=== PATIENT | female | born 1965 | race Caucasian/White ===

== ENCOUNTER 2018-04-24 14:23 | Emergency (ER) | payer OTHER ==
[~2018-04-24] VITALS: Ht 154.9 cm; Wt 63.2 kg
[2018-04-24] MEDS ORDERED: TRAZODONE50 MG PO (14:34)
[2018-04-24] MEDS ORDERED: TIZANIDINE HCL2 MG PO (14:34)
[2018-04-24] MEDS ORDERED: LABETALOL200 MG PO (14:35)
[2018-04-24] MEDS ORDERED: VITAMIN B IM (14:37)
[2018-04-24] MEDS ORDERED: LOSARTAN POTASS50 MG PO (14:37)
[2018-04-24] MEDS ORDERED: PEPCID20 MG PO (14:37)
[2018-04-24] MEDS ORDERED: LIPITOR20 MG PO (14:38)
[2018-04-24] MEDS ORDERED: IBUPROFEN600 MG PO (16:03)
[2018-04-24 16:41] VITALS: BP 102/63
== END 2018-04-24 16:41 | disposition home or self-care (01) | DRG 605 ==
LOC: ED 14:23
DX: S70.02XA Contusion of left hip, initial encounter (principal); I69.354 Hemiplegia and hemiparesis following cerebral infarction affecting left non-dominant side; W01.0XXA Fall on same level from slipping, tripping and stumbling without subsequent striking against object, initial encounter; Y92.009 Unspecified place in unspecified non-institutional (private) residence as the place of occurrence of the external cause; I10 Essential (primary) hypertension

== ENCOUNTER 2018-10-25 16:12 | Emergency (ER) | payer OTHER ==
[~2018-10-25] VITALS: Ht 154.9 cm; Wt 70.0 kg
[~2018-10-25 16:12] MED LIST: IBUPROFEN600 MG PO; LABETALOL200 MG PO; LIPITOR20 MG PO; LOSARTAN POTASS50 MG PO; PEPCID20 MG PO; TIZANIDINE HCL2 MG PO; TRAZODONE50 MG PO; VITAMIN B IM
[2018-10-25] MEDS ORDERED: TRAMADOL HCL50 MG PO (16:27)
[2018-10-25 16:31] VITALS: BP 150/101
== END 2018-10-25 16:45 | disposition home or self-care (01) | DRG 563 ==
LOC: ED 16:12
PROC: 2W3DX1Z Immobilization of Left Lower Arm using Splint (ICD-10-PCS; principal; 2018-10-25)
DX: S52.002A Unspecified fracture of upper end of left ulna, initial encounter for closed fracture (principal); I10 Essential (primary) hypertension; I69.954 Hemiplegia and hemiparesis following unspecified cerebrovascular disease affecting left non-dominant side; W19.XXXA Unspecified fall, initial encounter

== ENCOUNTER 2019-01-09 16:44 | Emergency (ER) | payer OTHER ==
[~2019-01-09] VITALS: Ht 154.9 cm; Wt 65.0 kg
[~2019-01-09 16:44] MED LIST changes: +TRAMADOL HCL50 MG PO
== END 2019-01-09 18:20 | disposition home or self-care (01) | DRG 605 ==
LOC: ED 16:44
DX: S60.012A Contusion of left thumb without damage to nail, initial encounter (principal); I69.354 Hemiplegia and hemiparesis following cerebral infarction affecting left non-dominant side; I10 Essential (primary) hypertension; V49.40XA Driver injured in collision with unspecified motor vehicles in traffic accident, initial encounter

== ENCOUNTER 2019-01-24 09:00 | Outpatient (RCR) | payer OTHER | END 2019-01-24 10:00 | disposition home or self-care (01) | DRG 947 | LOC: PT 09:00 | PROVIDERS: ATTEND Internal Medicine | DX: R53.1 Weakness (principal); I61.9 Nontraumatic intracerebral hemorrhage, unspecified; M62.81 Muscle weakness (generalized) ==

== ENCOUNTER → 2019-01-30 | Outpatient (REF) | payer OTHER ==
[~2019-01-30] MED LIST changes: +TRAMADOL HYDROC50 MG PO
== END | disposition home or self-care (01) | DRG 999 ==
LOC: DI 11:36
PROVIDERS: ATTEND Orthopaedic Surgery
DX: M25.552 Pain in left hip (principal); S72.002A Fracture of unspecified part of neck of left femur, initial encounter for closed fracture; S52.025D Nondisplaced fracture of olecranon process without intraarticular extension of left ulna, subsequent encounter for closed fracture with routine healing

== ENCOUNTER 2019-02-23 15:11 | Emergency (ER) | payer OTHER ==
[~2019-02-23] VITALS: Ht 154.9 cm; Wt 70.0 kg
[~2019-02-23 15:11] MED LIST changes: -TRAMADOL HYDROC50 MG PO
[2019-02-23] MEDS ORDERED: TRAMADOL HYDROC50 MG PO (16:41)
[2019-02-23 16:55] VITALS: BP 119/80
== END 2019-02-23 16:55 | disposition home or self-care (01) | DRG 563 ==
LOC: ED 15:11
PROC: 2W39X1Z Immobilization of Left Upper Extremity using Splint (ICD-10-PCS; principal; 2019-02-23)
DX: S42.492A Other displaced fracture of lower end of left humerus, initial encounter for closed fracture (principal); I10 Essential (primary) hypertension; W01.0XXA Fall on same level from slipping, tripping and stumbling without subsequent striking against object, initial encounter; Y92.59 Other trade areas as the place of occurrence of the external cause; S52.022D Displaced fracture of olecranon process without intraarticular extension of left ulna, subsequent encounter for closed fracture with routine healing; X58.XXXD Exposure to other specified factors, subsequent encounter

== ENCOUNTER 2019-04-06 13:18 | Emergency (ER) | payer OTHER ==
[~2019-04-06] VITALS: Ht 154.9 cm; Wt 70.0 kg
[~2019-04-06 13:18] MED LIST changes: +TRAMADOL HYDROC50 MG PO
[2019-04-06] MEDS ORDERED: BUPROPION HCL150 M1 PO (13:57)
[2019-04-06] MEDS ORDERED: GABAPENTIN100 MG PO (13:57)
[2019-04-06 15:15] VITALS: BP 121/79
== END 2019-04-06 15:15 | disposition home or self-care (01) | DRG 563 ==
LOC: ED 13:18
DX: S42.292A Other displaced fracture of upper end of left humerus, initial encounter for closed fracture (principal); I69.998 Other sequelae following unspecified cerebrovascular disease; W01.0XXA Fall on same level from slipping, tripping and stumbling without subsequent striking against object, initial encounter; Y92.009 Unspecified place in unspecified non-institutional (private) residence as the place of occurrence of the external cause

== ENCOUNTER → 2019-07-03 | Day surgery (SDC) | payer OTHER ==
[~2019-07-03] VITALS: Ht 154.9 cm; Wt 66.7 kg
[~2019-07-03] MED LIST changes: +BUPROPION HCL150 M1 PO; +GABAPENTIN100 MG PO
[2019-07-03 10:16] VITALS: BP 148/91
== END | disposition home or self-care (01) | DRG 951 ==
LOC: ENDO 07:16
PROVIDERS: ATTEND Surgery
PROC: 0DBP8ZX Excision of Rectum, Via Natural or Artificial Opening Endoscopic, Diagnostic (ICD-10-PCS; principal; 2019-07-03)
DX: Z12.11 Encounter for screening for malignant neoplasm of colon (principal); D12.8 Benign neoplasm of rectum; K57.30 Diverticulosis of large intestine without perforation or abscess without bleeding; Q43.8 Other specified congenital malformations of intestine; I10 Essential (primary) hypertension; Z80.0 Family history of malignant neoplasm of digestive organs; Z83.71 Family history of colonic polyps
CPT/HCPCS: J0131

== ENCOUNTER 2019-12-17 | Emergency (ER) | payer OTHER ==
[2019-12-17] MEDS ORDERED: AMLODIPINE BESYL5 MG PO (15:21)
[2019-12-17] MEDS ORDERED: LABETALOL HYDR100 MG PO (15:22)
[2019-12-17] MEDS ORDERED: DESYREL50 MG PO (15:22)
== END 2019-12-17 16:00 | disposition home or self-care (01) | DRG 563 ==
DX: S63.501A Unspecified sprain of right wrist, initial encounter (principal); S60.211A Contusion of right wrist, initial encounter; I10 Essential (primary) hypertension; W01.0XXA Fall on same level from slipping, tripping and stumbling without subsequent striking against object, initial encounter; Y92.22 Religious institution as the place of occurrence of the external cause

== ENCOUNTER 2020-08-05 18:40 | Emergency (ER) | payer OTHER ==
[~2020-08-05] VITALS: Ht 154.9 cm; Wt 68.0 kg
[~2020-08-05 18:40] MED LIST changes: +AMLODIPINE BESYL5 MG PO; +DESYREL50 MG PO; +LABETALOL HYDR100 MG PO
[2020-08-05 19:15] LABS: HEMATOCRIT 49.1 % (37.0-47.0); HEMOGLOBIN 15.4 g/dl (12.0-16.0); IMMATURE GRANULOCYTES 0.3 % (0.0-5.0); MEAN CELL VOLUME 93.7 fL CALC (80.0-100.0); MEAN CORPUSCULAR HGB 29.4 pG CALC (26.0-32.0); MEAN CORPUSCULAR HGB CONC 31.4 g/dL CAL (32.0-36.0); NEUT# 5.4 thou/uL (2.00-7.15); RED BLOOD COUNT 5.24 mill/uL (4.20-5.60); RED CELL DISTRI WIDTH 12.2 % (11.5-15.5)
[2020-08-05 19:29] LABS: ALBUMIN 4.6 g/dL (3.2-5.0); ALKALINE PHOSPHATASE 86 u/l (38-126); ANION GAP 11 (6-22 (CALC)); BILIRUBIN, TOTAL 0.8 mg/dL (0.0-1.4); BUN 14 mg/dL (7-17); BUN/CREATININE RATIO 14 (12-20 (CALC)); CARBON DIOXIDE 27 mmol/l (22-30); CHLORIDE 105 mmol/l (95-108); GFR 58 ML/MIN (>=60 (CALC)); GFR FOR AFR.AMER. > 60 ML/MIN (>=60 (CALC)); LIPASE 88 u/l (23-300); POTASSIUM 3.8 mmol/l (3.5-5.1); SGOT/AST 24 u/l (14-36); SODIUM 139 mmol/l (137-146); TOTAL PROTEIN 7.6 g/dL (6.3-8.2)
[2020-08-05] MEDS ORDERED: TAMSULOSIN0.4 MG PO (21:21)
[2020-08-05] MEDS ORDERED: ULTRAM50 M1 PO (21:21)
[2020-08-05 21:24] VITALS: BP 135/83
== END 2020-08-05 21:22 | disposition home or self-care (01) | DRG 694 ==
LOC: ED 18:40
PROVIDERS: Family Medicine
DX: N13.2 Hydronephrosis with renal and ureteral calculous obstruction (principal); I10 Essential (primary) hypertension; Z86.73 Personal history of transient ischemic attack (TIA), and cerebral infarction without residual deficits
CPT/HCPCS: Q9967

== ENCOUNTER 2023-04-12 02:42 | Emergency (ER) | payer MEDICARE ==
[~2023-04-12] VITALS: Ht 154.9 cm; Wt 62.1 kg
[~2023-04-12 02:42] MED LIST changes: +TAMSULOSIN0.4 MG PO; +ULTRAM50 M1 PO
[2023-04-12 02:53] VITALS: BP 141/91
[2023-04-12 03:00] VITALS: BP 116/84
[2023-04-12 03:15] VITALS: BP 131/88
[2023-04-12 03:39] LABS: BASO% 0.5 % (0-3); EOS% 1.3 % (0-8); HEMATOCRIT 46.3 % (37.0-47.0); HEMOGLOBIN 14.9 g/dl (12.0-16.0); IMMATURE GRANULOCYTES 0.1 % (0.0-5.0); LYMPH% 33.5 % (15-41); MEAN CELL VOLUME 92.2 fL CALC (80.0-100.0); MEAN CORPUSCULAR HGB 29.7 pG CALC (26.0-32.0); MEAN CORPUSCULAR HGB CONC 32.2 g/dL CAL (32.0-36.0); MONO% 8.1 % (2-13); NEUT# 5.63 thou/uL (2.00-7.15); NEUT% 56.5 % (42-76); RED BLOOD COUNT 5.02 mill/uL (4.20-5.60); RED CELL DISTRI WIDTH 12.3 % (11.5-15.5)
[2023-04-12 03:54] LABS: ALBUMIN 4.4 g/dL (3.2-5.0); ALKALINE PHOSPHATASE 88 u/l (38-126); ANION GAP 16 (6-22 (CALC)); BILIRUBIN, TOTAL 0.9 mg/dL (0.02-1.3); BUN 9 mg/dL (7-17); BUN/CREATININE RATIO 9 (12-20 (CALC)); CARBON DIOXIDE 22 mmol/l (22-30); CHLORIDE 107 mmol/l (95-108); GFR FOR AFR.AMER. > 60 ML/MIN (>=60 (CALC)); GFR OTHER RACES 58 ML/MIN (>=60 (CALC)); POTASSIUM 3.6 mmol/l (3.5-5.1); SGOT/AST 31 u/l (14-36); SODIUM 142 mmol/l (137-146); TOTAL PROTEIN 7.3 g/dL (6.3-8.2)
[2023-04-12 05:40] VITALS: BP 131/88
== END 2023-04-12 06:04 | disposition home or self-care (01) ==
LOC: ED 02:42
PROVIDERS: Family Medicine
DX: G43.909 Migraine, unspecified, not intractable, without status migrainosus (principal); I10 Essential (primary) hypertension; I69.354 Hemiplegia and hemiparesis following cerebral infarction affecting left non-dominant side

== ENCOUNTER 2024-08-06 09:50 | Day surgery (SDC) | payer MEDICARE ==
[~2024-08-06] VITALS: Ht 154.9 cm; Wt 64.0 kg
[2024-08-06] MEDS ORDERED: LACTATED RINGER'S 1,000 ML IV ONE (09:57)
[2024-08-06] MEDS ORDERED: FAMOTIDINE 10MG/ML 2ML SDV IV ONE (10:20)
[2024-08-06 11:47] VITALS: BP 124/88
[2024-08-06] MEDS ORDERED: GLYCOPYRROLATE 0.2 MG/ML IV ONE (14:52)
[2024-08-06] MEDS ORDERED: PROPOFOL 200 MG/20 ML VIAL IV ONE (14:52)
[2024-08-06] MEDS ORDERED: LIDOCAINE HCL 2% 2ML SDV IV ONE (14:52)
== END 2024-08-06 11:58 | disposition home or self-care (01) ==
LOC: ENDO 09:50
PROVIDERS: ATTEND Internal Medicine Gastroenterology
PROC: 0DJD8ZZ Inspection of Lower Intestinal Tract, Via Natural or Artificial Opening Endoscopic (ICD-10-PCS; principal; 2024-08-06)
DX: Z12.11 Encounter for screening for malignant neoplasm of colon (principal); K64.8 Other hemorrhoids; I10 Essential (primary) hypertension; K59.09 Other constipation; Z86.010 Personal history of colon polyps; Z80.0 Family history of malignant neoplasm of digestive organs